=== PATIENT | male | born 1995 | race Caucasian/White ===

== ENCOUNTER 2024-05-21 17:01 | Emergency (ER) | payer MEDICAID ==
[~2024-05-21] VITALS: Ht 170.2 cm; Wt 80.0 kg
[2024-05-21 18:45] VITALS: O2SAT 100
[2024-05-22 00:03] VITALS: BP 131/93; PULSE 71; RESP 14; TEMP 36.39180; O2SAT 100
== END 2024-05-22 00:04 | disposition home or self-care (01) ==
LOC: ER 17:01
DX: M54.50 Low back pain, unspecified (principal); Z90.49 Acquired absence of other specified parts of digestive tract; V49.59XA Passenger injured in collision with other motor vehicles in traffic accident, initial encounter; Y93.89 Activity, other specified; Y92.89 Other specified places as the place of occurrence of the external cause; Y99.8 Other external cause status
CPT/HCPCS: 99281